=== PATIENT | female | born 1935 | race Caucasian/White ===

== ENCOUNTER 2016-04-08 10:50 | Inpatient (IN) | payer OTHER ==
[2016-04-07 11:59] LABS: MANUAL DIFF NEEDED? NO
[2016-04-07 12:03] LABS: BASO% 0.5 % (0.0-0.8); EOS# 0.01 X1000 (0.0-0.7); EOS% 0.2 % (0.0-10.0); HEMATOCRIT 36.9 % (37.0-47.0); HEMOGLOBIN 12.8 g/dL (12.0-16.0); IMM GRAN# 0.02 X1000 (0.0-0.04); IMM GRAN% 0.5 % (0.0-0.5); LYMPH# 1.04 X1000 (1.2-3.4); LYMPH% 24.6 % (20.5-51.1); MCH 30.6 PG (27-31); MCHC 34.7 g/dL (33-37); MCV 88.3 FL (81-99); MONO# 0.79 X1000 (0.11-0.59); MONO% 18.7 % (1.7-9.3); MPV 9.3 FL (7.4-10.4); NEUT% 55.5 % (42.2-75.2); PLT 228 X1000 (130-400); RBC 4.18 XMIL (4.2-5.4)
[2016-04-07 12:12] LABS: INR 1.11; PROTIME 11.8 Seconds (9.2-11.7); PTT 32.4 Seconds (22.0-36.0)
[2016-04-07 12:56] LABS: ALBUMIN 4.1 g/dL (3.5-5.0); CALCIUM 8.7 mg/dL (8.8-10.2); POTASSIUM 4.6 mmol/L (3.5-5.1); TOTAL BILIRUBIN 0.42 mg/dL (0.20-1.00); TOTAL PROTEIN 6.7 g/dL (6.3-8.3)
--- NOTE | 2016-04-08 15:15 | Diag Imaging Result Document ---
PROCEDURE NAME: US RENAL 2 (RETROPER) COMPLETE - 04/08/2016 RENAL ULTRASOUND: FINDINGS: The right kidney is 8.7 x 4.3 x 4.5 cm. The left is 8.9 x 4.6 x 4.2 cm. Both kidneys are somewhat atrophic and hyperechoic in appearance. There is no evidence of hydronephrosis. The bladder is not distended. There are no previous studies. IMPRESSION: Renal atrophy and probable medical renal disease.
[2016-04-08] MEDS: LASIX PO SCH (15:37)
[2016-04-08] MEDS: NEURONTIN PO SCH ×2 (15:37→20:23)
[2016-04-08] MEDS: ULTRAM PO SCH ×2 (15:40→20:22)
[2016-04-08 17:21] LABS: URINE CULTURE NEEDED? NO; URINE MICRO REVIEW NEEDED? NO; URINE SOURCE CLEAN CATCH
[2016-04-08] MEDS ORDERED: DUONEB (A & A) INH PRN (17:28)
[2016-04-08 17:29] LABS: BILIRUBIN URINE NEGATIVE (NEGATIVE); BLOOD URINE NEGATIVE (NEGATIVE); COLOR STRAW; GLUCOSE URINE NEGATIVE (NEGATIVE); LEUKOCYTES URINE NEGATIVE (NEGATIVE); NITRITE URINE NEGATIVE (NEGATIVE); PROTEIN URINE NEGATIVE (NEGATIVE); SP GRAVITY URINE 1.006; TURBIDITY URINE CLEAR (CLEAR); UR EPITHELIAL CELLS <10 /HPF (<10); URINE BACTERIA NEGATIVE /HPF; URINE RBC <10 /HPF (<10); URINE WBC <10 /HPF (<10); UROBILINOGEN URINE NORMAL (NORMAL)
[2016-04-08] MEDS ORDERED: SODIUM CHLORIDE 0.9% INJ SCH (17:30)
[2016-04-08] MEDS ORDERED: PROTONIX IV SCH (17:30)
[2016-04-08 17:40] LABS: UR CREAT RANDOM 22.6 mg/dL (11-20); UR PROT RANDOM < 4.0 mg/dL
--- NOTE | 2016-04-08 18:00 | HISTORY AND PHYSICAL ---
PRIMARY CARE PHYSICIAN: Josh Soto MD. HEALTH CLAIMS EXAMINER: Yessy Martinez MD. CHIEF COMPLAINT: Chest pain. Shortness of breath. HISTORY OF PRESENT ILLNESS: Mrs. Mayfield is a pleasant 80-year-old female, she has a history of Alzheimer's type dementia, hypertension, atrial fibrillation and hyperlipidemia, who was admitted from outpatient procedure. She is actually scheduled for left heart catheterization today by Dr. Yessy Martinez for progressive shortness of breath and chest pain, but in preop, she was noted to have a creatinine of 2.2. Dr. Martinez felt the patient needed to be admitted and worked up for her renal failure and monitored for chest pain and shortness of breath. She has been having progressive chest pain and shortness of breath over the past few weeks. She has also been reporting a cough, but no fever or chills. She also has fairly severe lower extremity edema. Chest pain and shortness of breath is made worse with exertion and relieved with rest. With the exception of the previously described, she has no other complaints. She is currently resting in bed comfortably. Her outsole flexer reveals atrial fibrillation with a controlled response. Laboratory data does show a sodium of 124, creatinine 2.2, but otherwise fairly unremarkable. She did report that Dr. Martinez started her on Lasix at home. We are going to admit her for renal failure as well as chest pain. Dr. Spence and Dr. Martinez have already been consulted. PAST MEDICAL HISTORY: 1. Hypertension. 2. GERD. 3. Atrial fibrillation on anticoagulant therapy. 4. Dementia. 5. Chronic anxiety. 6. Rheumatoid arthritis. PAST SURGICAL HISTORY: Cholecystectomy, bilateral knee replacement, bilateral carpal tunnel release. SOCIAL HISTORY: Patient is . She lives at home. She does not smoke, drink or use drugs. FAMILY HISTORY: Both parents with "natural causes" in their 80s. REVIEW OF SYSTEMS: Ten point review of systems obtained and found to be negative with the exception of the HPI. HOME MEDICATIONS: Eliquis 5 mg b.i.d., BuSpar 10 mg every 8 hours. Aricept 10 mg daily. Keppra 250 mg p.o. b.i.d., Synthroid 50 mcg daily. Magnesium 250 mg daily. Namenda XR 28 mg p.o. daily. Lopressor 50 mg b.i.d., Prilosec 40 mg p.o. daily. KCl 10 mEq p.o. daily. Pravachol 20 mg daily. Ultram 50 mg b.i.d. Desyrel 50 mg p.o. at bedtime, Lasix 20 mg daily. Neurontin 300 mg b.i.d. ALLERGIES: To Dilantin. PHYSICAL EXAMINATION: VITAL SIGNS: Blood pressure is 117/70, heart rate is 74, respiratory rate is 18, O2 saturation 100% on room air. Temperature is 97.7. GENERAL: This is an overweight, female, lying in hospital bed in no acute distress. NEUROLOGIC: The patient is alert. She is oriented, but at times she does seem forgetful in answering questions. There are no focal deficits. HEENT: Head is atraumatic, normocephalic. Pupils are equal, round, and reactive to light. Oral mucosa is moist. Trachea is midline. NECK: Supple. No appreciable JVD. CHEST: Coarse sounds bilaterally. GI: Soft, nondistended, nontender. Bowel sounds are positive. EXTREMITIES: With 2+ pitting edema bilaterally. Pulses are diminished. DIAGNOSTIC DATA: Chest x-ray is pending. Renal ultrasound does not show anything acute. Chronic changes noted. WBC 4.23, hemoglobin 12.8, hematocrit 36.9, platelet 228. Coag within normal limits. Sodium 124, potassium 4.6, chloride 81, CO2 of 27, anion gap 16, BUN 39, creatinine 2.2. Calcium 8.7. Liver function tests within normal limits. ASSESSMENT AND PLAN: 1. Chest pain and shortness of breath: The patient is being followed by Cardiology. Recent echocardiogram done at the beginning of the month shows fairly preserved ejection fraction of 50% without regional wall motion abnormalities. She does have mildly elevated pulmonary artery pressure. Mild mitral regurgitation and mild tricuspid regurgitation. We will monitor telemetry. She is currently not having any chest pain. Her EKG did not show anything acute. Again, Cardiology is following. 2. Acute kidney injury: Review of renal function in the past shows it seems that she has some degree of renal insufficiency. Renal ultrasound does not show anything acute. We have ordered urine studies and consulted with Dr. Spence. 3. Hyponatremia: Seems to be hypervolemic given her physical exam and history. We are going to check urine studies and treat accordingly. She is on p.o. Lasix per Cardiology. 4. Hypertension: Chronic and stable. Continue her home medications. 5. Hypothyroidism: We will check a thyroid function panel and continue her Synthroid. 6. Dementia: Chronic and stable, continue home medications. 7. Cough: Patient has a cough and states that she has been around family that has been sick recently. We are checking a chest x-ray now. She does not have a white count, fever or tachycardia. We will add p.r.n. nebulizers and monitor this closely. 8. Gastrointestinal prophylaxis will be provided with IV Protonix. 9. Deep vein thrombosis prophylaxis with heparin, given her renal failure. 10. Further recommendations to follow. Dictated by YUKI Brooks for Navdeep Dudley MD
[2016-04-08 18:02] LABS: FREE T4 1.55 ng/dL (0.93-1.70)
[2016-04-08] MEDS: DUONEB (A & A) INH SCH ×3 (19:00→22:59)
[2016-04-08] MEDS: PRAVACHOL PO SCH (20:23)
[2016-04-08] MEDS: LOPRESSOR PO SCH (20:23)
[2016-04-08] MEDS: DESYREL PO SCH (20:23)
[2016-04-08] MEDS: KEPPRA PO SCH (20:23)
[2016-04-08] MEDS: BUSPAR PO PRN (21:50)
[2016-04-09] MEDS: MORPHINE IV PRN ×4 (01:03→20:17)
[2016-04-09] MEDS: DUONEB (A & A) INH SCH ×6 (03:11→22:41)
[2016-04-09 05:24] LABS: HEMATOCRIT 33.6 % (37.0-47.0); HEMOGLOBIN 11.6 g/dL (12.0-16.0); MCH 30.6 PG (27-31); MCHC 34.5 g/dL (33-37); MCV 88.7 FL (81-99); MPV 9.6 FL (7.4-10.4); RBC 3.79 XMIL (4.2-5.4)
[2016-04-09 05:46] LABS: HEMOGLOBIN A1C 5.7 % (4.8-6.0)
[2016-04-09 06:08] LABS: AGAP 12; BUN 32 mg/dL (8-22); CALCIUM 8.8 mg/dL (8.8-10.2); CHLORIDE 82 mmol/L (98-107); COSMO 257; HDL 32 mg/dL (45-65); LDL 63 mg/dL; MAGNESIUM 2.2 mg/dL (1.5-2.7); POTASSIUM 4.6 mmol/L (3.5-5.1); SODIUM 124 mmol/L (136-145); TCO2 30 mmol/L (25-35); TRIGLYCERIDES 133 mg/dL (35-135); VLDL 27 mg/dL
[2016-04-09] MEDS: SYNTHROID PO SCH (06:16)
[2016-04-09] MEDS ORDERED: MAG-OX PO SCH (09:00)
[2016-04-09] MEDS: KEPPRA PO SCH ×2 (09:16→20:18)
[2016-04-09] MEDS: PRILOSEC PO SCH (09:17)
[2016-04-09] MEDS: ARICEPT PO SCH (09:17)
[2016-04-09] MEDS: LOPRESSOR PO SCH ×2 (09:17→20:18)
[2016-04-09] MEDS: LASIX PO SCH (09:17)
[2016-04-09] MEDS: ULTRAM PO SCH ×2 (09:18→20:18)
[2016-04-09] MEDS: KLOR-CON PO SCH (09:18)
[2016-04-09] MEDS: NAMENDA XR PO SCH (09:18)
[2016-04-09] MEDS: NEURONTIN PO SCH ×2 (09:19→20:19)
--- NOTE | 2016-04-09 11:01 | Diag Imaging Result Document ---
PROCEDURE NAME: CHEST-2 VIEWS - 04/08/2016 TWO VIEWS OF THE CHEST: FINDINGS: There is elevation of the left hemidiaphragm. There is minimal atelectasis in the left base, which was not present on 12/05/2015. Otherwise, there has been no significant change. IMPRESSION: Minimal left lower lobe atelectasis.
[2016-04-09] MEDS: ROBAXIN PO PRN ×2 (11:37→19:00)
--- NOTE | 2016-04-09 12:41 | PROGRESS NOTE ---
DATE: 04/09/2016 SUBJECTIVE: Overall patient feels well currently. Her breathing is stable. OBJECTIVE: Vital Signs: Heart rate is in the 60s to 70s. Blood pressure is 90s over 60s. General: On exam, this is a well-developed female who is comfortable. HEENT: Benign. Neck: Supple. Chest: Bilateral breath sounds, which are clear. Cardiovascular: Reveals a regular rate and rhythm. Abdomen: Positive bowel sounds. Nontender, nondistended. Extremities: There is trivial nonpitting edema within the ankle and pretibial distribution. LABORATORY WORK: Today hemoglobin and hematocrit is 11 and 33, BUN and creatinine is 32 and 1.8. This is slowly improving. Urinalysis is negative. I have reviewed renal ultrasound which appears to be consistent with degenerative renal disease. IMPRESSION: Diastolic heart failure. PLAN: Ms. Mayfield is recovering from an episode of significant diastolic heart failure with severe swelling of the lower extremities. She has diuresed appropriately, but with diuresis has developed a worsening of her renal function which is improving by withholding diuretic and slow rehydration. I suspect that patient's diastolic issues are primarily related to long history of hypertension and probably underlying pulmonary disease as well although certainly coronary disease is an issue. Unfortunately, we have a very narrow medical window with Ms. Mayfield where we can appropriately treat her fluid without compromising renal function. My preference would be left and right heart catheterization. We would like to perform left heart catheterization to exclude coronary disease as an underlying etiology. The patient has had atypical chest pain with anginal features. If we were to perform this we need renal function optimal and would have to use minimal contrast. No more than 30 or 40 mL. I would also like to perform right heart catheterization at that time to help with hemodynamic monitoring and medication adjustment. I have fully discussed these issues with the patient and her family. They understand these and are in agreement with this plan.
--- NOTE | 2016-04-09 13:46 | CONSULTATION ---
DATE OF CONSULTATION: 04/09/2016 REASON FOR CONSULTATION: Acute kidney injury. HISTORY OF PRESENT ILLNESS: Ms. aMyfield is a 80-year-old, white female with a history of dementia as well as atrial fibrillation, hypertension, rheumatoid arthritis, etc. She was experiencing chest discomfort and had a plan for left heart catheterization by Dr. Martinez. Her laboratory data disclosed a creatinine of 2.2, so she was admitted to address this problem and to plan for the heart catheter after. Baseline creatinine historically was in the low 1's though early in March, her creatinine was 1.8 to 1.9. She states that she had severe lower extremity edema and had a new diuretic added. The treatment improved her edema, but she has had some cramping and leg discomfort since that time. She states she has had kidney problems "all her life." She does relate a history of nephrolithiasis, but no other problems could be articulated. PAST MEDICAL HISTORY: As above. SOCIAL HISTORY: She is and lives with her . No alcohol or tobacco. FAMILY HISTORY: Noncontributory. REVIEW OF SYSTEMS: Otherwise noncontributory. PHYSICAL EXAMINATION: Vital Signs: Blood pressure 91/61, heart rate 73, respiration 18, afebrile. Intake 240 mL. Output 1 L. Skin: Warm and dry. HEENT: Conjunctivae are pink. Pupils are equal. Oropharynx is dry. Neck: Neck veins are not visible. Trachea is midline. Heart: Regular. Lungs: Have equal breath sounds. No crackles or wheezes. Abdomen: Soft and nontender. Bowel sounds are present. Extremities: Have no edema, clubbing, or cyanosis. Her legs are tender to palpation. Neurologic Exam: Grossly nonfocal. LABORATORY DATA: Sodium 124, potassium 4.6, chloride 82, bicarbonate 30, BUN 32, creatinine 1.8. Urinalysis with no blood or protein. FENa is greater than 1. IMPRESSION: Acute kidney injury. I expect this is related to diuretic use, overlying mild chronic kidney disease as a function of her age and vascular disease. I will stop her diuretics over the weekend and observe her response. Her labs have already improved modestly since admission. Renal ultrasound has been performed and shows small kidneys bilaterally, but no other findings.
[2016-04-09] MEDS: MAG-OX PO SCH (14:48)
--- NOTE | 2016-04-09 18:51 | PROGRESS NOTE ---
DATE: 04/09/2016 SUBJECTIVE: This patient states that she is feeling fine, she is complaining of cramping in the lower extremities. She denies chest pain at this moment. She denies nausea, vomiting, diarrhea, constipation, fever or chills. OBJECTIVE: Vital Signs: Temperature 97.4 degrees, pulse 94, respiratory rate 18, blood pressure 96/64, oxygen saturation 99. HEENT: Head normocephalic. No trauma. PERRLA. Neck: Supple. No JVD. No masses. Cardiovascular: RRR. No murmurs. No gallops. No rubs. Chest: Clear to auscultation. No wheezing. No rales. Abdomen: Soft, nontender, nondistended. No hepatosplenomegaly. Extremities: Trace edema. No clubbing. No cyanosis. Neurological: The patient is alert and oriented x3. No focal neurological deficits. LABORATORY: WBC 4.5, hemoglobin 11.6, hematocrit 33.6, platelets 188,000, sodium 122, potassium 4.6, chloride 182, bicarbonate 30, BUN 32, creatinine 1.8, glucose 108, calcium 8.8. ASSESSMENT AND PLAN: 1. Chest pain and shortness of breath. At this moment this patient is not complaining of any shortness of breath or chest pain. Cardiology department is following this patient. The plan is to do a left and right cardiac cath, assuming this procedure is going to be after kidney function and electrolyte stabilization, hopefully at the beginning of next week. 2. Acute kidney injury. Nephrology is on board and the diuretics were stopped. The kidney function improved a little bit. We will continue monitoring this patient. 3. Hyponatremia. No changes compared with yesterday. We will continue monitoring. 4. Hypertension, chronic and stable. Continue home medication. 5. Hypothyroidism. TSH and T4 within normal limits. We will continue with Synthroid. 6. Dementia, chronic and stable. Continue home medication.
[2016-04-09] MEDS: BUSPAR PO PRN (20:17)
[2016-04-09] MEDS: PRAVACHOL PO SCH (20:18)
[2016-04-09] MEDS: DESYREL PO SCH (20:18)
[2016-04-10] MEDS: ROBAXIN PO PRN (01:22)
[2016-04-10] MEDS: DUONEB (A & A) INH SCH ×6 (03:26→22:49)
[2016-04-10 05:26] LABS: MANUAL DIFF NEEDED? NO
[2016-04-10 05:37] LABS: BASO% 0.4 % (0.0-0.8); EOS# 0.13 X1000 (0.0-0.7); EOS% 2.8 % (0.0-10.0); HEMATOCRIT 32.6 % (37.0-47.0); LYMPH# 2.01 X1000 (1.2-3.4); LYMPH% 42.7 % (20.5-51.1); MCH 30.6 PG (27-31); MCHC 33.7 g/dL (33-37); MCV 90.6 FL (81-99); MONO# 0.74 X1000 (0.11-0.59); MONO% 15.7 % (1.7-9.3); MPV 9.6 FL (7.4-10.4); NEUT% 38.4 % (42.2-75.2); PLT 219 X1000 (130-400)
[2016-04-10] MEDS: SYNTHROID PO SCH (06:03)
[2016-04-10 06:16] LABS: ALBUMIN 3.3 g/dL (3.5-5.0); CALCIUM 8.5 mg/dL (8.8-10.2); POTASSIUM 5.4 mmol/L (3.5-5.1)
[2016-04-10] MEDS: PRILOSEC PO SCH (08:36)
[2016-04-10] MEDS: NEURONTIN PO SCH ×2 (08:36→20:41)
[2016-04-10] MEDS: ULTRAM PO SCH ×2 (08:37→20:40)
[2016-04-10] MEDS: ARICEPT PO SCH (08:37)
[2016-04-10] MEDS: NAMENDA XR PO SCH (08:37)
[2016-04-10] MEDS: KLOR-CON PO SCH (08:37)
[2016-04-10] MEDS: LOPRESSOR PO SCH ×2 (08:37→20:41)
[2016-04-10] MEDS: MAG-OX PO SCH (08:37)
[2016-04-10] MEDS: KEPPRA PO SCH ×2 (08:37→20:41)
[2016-04-10] MEDS ORDERED: SAMSCA PO ONE (12:13)
--- NOTE | 2016-04-10 14:26 | PROGRESS NOTE ---
DATE: 04/10/2016 SUBJECTIVE: Patient has no complaints today. Her breathing appears to be stable. She denies overt chest pain. OBJECTIVE: I's and O's: Patient is positive 1150 mL today. Vital signs: Heart rate is in the 70s, blood pressure is 100/60. General: On exam this is a well-developed female who is comfortable. Chest: Bilateral breath sounds with diffuse rhonchi. No wheezing. No crackles. Cardiovascular: Reveals a regular rate and rhythm. Abdomen: Positive bowel sounds. Nontender, nondistended. Extremities: There is nonpitting pretibial edema. LABORATORY DATA: I reviewed laboratory work today. White count 4, hemoglobin and hematocrit 11 and 32, platelet count is 219,000. Sodium 124, potassium 5.4, chloride 82, BUN 34, creatinine 2.2. IMPRESSION: Congestive heart failure. Patient appears to have diastolic congestive heart failure. She had diuresed aggressively in the outpatient setting and was feeling better. However this has had an effect on overall renal function. Her creatinine is beginning to slowly drift back up. She remains hyponatremic. I am concerned that this may be a hypervolemic hyponatremia. Although diuretic therapy has been held, we will discussed the possible use of Samsca with Nephrology for free water diuresis. From a cardiac standpoint, ideally we would like to consider left and right heart catheterization. With creatinine elevating however I think that left heart catheterization would not be prudent at this time. Will discuss with Nephrology. Further recommendations to follow.
[2016-04-10] MEDS ORDERED: VELTASSA PO ONE (16:49)
[2016-04-10] MEDS: MORPHINE IV PRN (18:28)
--- NOTE | 2016-04-10 18:45 | PROGRESS NOTE ---
DATE: 04/10/2016 SUBJECTIVE: This patient states that she is feeling fine. She is not complaining of any specific problem at this moment. She denies nausea, vomiting, diarrhea, constipation, fever or chills. OBJECTIVE: Vital Signs: Temperature 97.8 degrees, pulse 106, respiratory rate 19, blood pressure 110/67, O2 saturation 100% on room air. HEENT: Head normocephalic. No trauma. PERRLA. Neck: Supple. No JVD. No masses. Cardiovascular: Irregular rate and rhythm. No murmurs. No gallops or rubs. Chest: Clear to auscultation. No wheezing. No rales. Abdomen: Soft, nontender, nondistended. No hepatosplenomegaly. Extremities: No edema. No clubbing. No cyanosis. Neurological: The patient is alert and oriented x3. No focal neurological deficits. LABORATORY: WBC 4.7, hemoglobin 11, hematocrit 32.6. Sodium 124, potassium 5.4 , chloride 82, BUN 32, creatinine 2.2, glucose 107, calcium 8.5, albumin 3.3. ASSESSMENT AND PLAN: 1. Chest pain and shortness of breath. At this moment this patient is not complaining of any shortness of breath or chest pain. Cardiology department is following this patient. The plan is to do a left and right cardiac catheterization. I am assuming that this procedure will be done after the kidney function and electrolyte stabilization hopefully at the beginning of next week. 2. Hyponatremia. This patient received a dose of Tolvaptan today. Will monitor. 3. Acute kidney injury. Nephrology is on board. The creatinine increased a little bit from 1.8 to 2.2. We will monitor. 4. Hyperkalemia. This patient is on potassium daily, I stopped this medication. Also I added 1 time dose of Veltassa low dose. Will monitor. 5. Hypothyroidism. TSH and T4 within normal limits. We will continue with Synthroid. 6. Dementia. This is chronic and stable. Continue home medications. CRITICAL CARE TIME: 30 minutes. BRIGIDO
[2016-04-10] MEDS: PRAVACHOL PO SCH (20:40)
[2016-04-10] MEDS: BUSPAR PO PRN (20:40)
[2016-04-10] MEDS: DESYREL PO SCH (20:41)
[2016-04-11] MEDS: DUONEB (A & A) INH SCH ×3 (03:41→10:39)
[2016-04-11 05:03] LABS: MANUAL DIFF NEEDED? NO
[2016-04-11 05:19] LABS: BASO% 0.3 % (0.0-0.8); EOS# 0.13 X1000 (0.0-0.7); EOS% 2.2 % (0.0-10.0); HEMATOCRIT 34.2 % (37.0-47.0); HEMOGLOBIN 11.8 g/dL (12.0-16.0); LYMPH# 1.75 X1000 (1.2-3.4); LYMPH% 29.8 % (20.5-51.1); MCH 30.9 PG (27-31); MCHC 34.5 g/dL (33-37); MCV 89.5 FL (81-99); MONO% 10.2 % (1.7-9.3); MPV 9.4 FL (7.4-10.4); NEUT% 57.5 % (42.2-75.2); PLT 238 X1000 (130-400); RBC 3.82 XMIL (4.2-5.4)
[2016-04-11] MEDS: ROBAXIN PO PRN (05:36)
[2016-04-11] MEDS: SYNTHROID PO SCH (06:02)
[2016-04-11 06:50] LABS: ALBUMIN 3.6 g/dL (3.5-5.0); CALCIUM 8.7 mg/dL (8.8-10.2)
--- NOTE | 2016-04-11 07:44 | EKG Report ---
Test Performed on : 04/09/2016 06:04:31 AM Test Reason : dyspnea Blood Pressure : / mmHG Vent. Rate : 074 BPM Atrial Rate : 049 BPM P-R Int : 000 ms QRS Dur : 096 ms QT Int : 412 ms P-R-T Axes : 000 -04 -05 degrees QTc Int : 457 ms Atrial fibrillation. Nonspecific ST abnormality Abnormal ECG When compared with ECG of 05-DEC-2015 17:00, T wave inversion no longer evident in Anterior leads Confirmed by Genaro Tripp MD ([id number]) on 04/12/2016 8:35:13 AM
--- NOTE | 2016-04-11 09:23 | EKG Report ---
Test Performed on : 04/09/2016 1:20:11 PM Test Reason : CIC10. Not ordered in [place] Blood Pressure : / mmHG Vent. Rate : 072 BPM Atrial Rate : 069 BPM P-R Int : 000 ms QRS Dur : 102 ms QT Int : 410 ms P-R-T Axes : 000 -02 027 degrees QTc Int : 448 ms Atrial fibrillation. Nonspecific T wave abnormality Abnormal ECG When compared with ECG of 09-APR-2016 06:04, (Unconfirmed) No significant change was found Confirmed by Genaro Tripp MD ([id number]) on 04/12/2016 8:33:35 AM
[2016-04-11] MEDS ORDERED: SAMSCA PO ONE (10:13)
--- NOTE | 2016-04-11 10:42 | PROGRESS NOTE ---
DATE: 04/11/2016 SUBJECTIVE: The patient feels better. She has no complaints today. She is now edema free. OBJECTIVE: Vital Signs: Heart rate is in the 80s, blood pressure is 100-130s over 70s. General: On exam, this is a well-developed female, who is awake and alert. HEENT: Benign. Neck: Supple. Chest: Clear. Cardiovascular: Reveals a regular rate and rhythm. Abdomen: Positive bowel sounds. Nontender, nondistended. Extremities: There is now no edema, which is unchanged. LABORATORY WORK: Today white count 5, hemoglobin and hematocrit 11 and 34, platelet count is 238,000. Sodium 125, potassium 5, chloride 85, BUN 31, creatinine 1.9. IMPRESSION/PROBLEM: Congestive heart failure. This is diastolic congestive heart failure in the setting of acute on chronic renal insufficiency. Patient has responded well to Samsca. I would dose 1 more time. She appears to be diuresing and is now edema free. From a cardiac standpoint, I feel it is okay for patient to be discharged home today, after her dosage of Samsca. As far as home medications are concerned, I would reinitiate anticoagulant therapy in the form of Eliquis. I would cinder all on Lasix 40 mg a day, but withhold potassium. We will continue other medications. We will have patient followed up in the cardiology office in 2 weeks. I will check a repeat blood work within the next 1-2 weeks in the outpatient setting.
[2016-04-11] MEDS: MAG-OX PO SCH (10:50)
[2016-04-11] MEDS: ULTRAM PO SCH (10:50)
[2016-04-11] MEDS: NAMENDA XR PO SCH (10:50)
[2016-04-11] MEDS: NEURONTIN PO SCH (10:51)
[2016-04-11] MEDS: ARICEPT PO SCH (10:52)
[2016-04-11] MEDS: PRILOSEC PO SCH (10:52)
[2016-04-11] MEDS: LOPRESSOR PO SCH (10:52)
[2016-04-11] MEDS: KEPPRA PO SCH (10:52)
[2016-04-11 11:39] VITALS: BP 102/66
--- NOTE | 2016-04-11 14:36 | Extremity Venous Study ---
PROCEDURE NAME: Venous U/S Bilateral Legs - 04/09/2016 REFERRING PHYSICIAN: Dr. Gonzáles. INTERPRETING PHYSICIAN: Dr. Hickman. TECHNOLOGIST: Davian. INDICATION: The patient has pain in the lower extremities. FINDINGS: Bilateral lower extremity venous images accomplished. The common femoral, superficial femoral, deep femoral, popliteal, posterior tibial, peroneal, and greater saphenous veins are imaged bilaterally. The Doppler is used to evaluate the veins for spontaneity, phasicity, respiratory excursion, and distal augmentation. All veins are compressible. No intraluminal clot is seen. INTERPRETATION: No evidence of deep or superficial venous thrombosis in either lower extremity in the veins identified.
--- NOTE | 2016-04-11 17:13 | DISCHARGE SUMMARY ---
ADMISSION DATE: 04/08/2016 DISCHARGE DATE: 04/11/2016 DISCHARGE DIAGNOSES: 1. Chest pain and shortness of breath. 2. Hyponatremia. 3. Acute kidney injury. 4. Hyperkalemia/resolved. 5. Hypothyroidism. 6. Dementia. CONSULTATIONS: Cardiology Department, Dr. Yessy Martinez, and Nephrology Department, Dr. Chad Spence. HOSPITAL COURSE: This is a 80-year-old female with a past medical history of Alzheimer's type dementia, hypertension, atrial fibrillation, and hyperlipidemia, who was admitted from outpatient procedure. She is actually scheduled for a left heart catheterization by Dr. Martinez for progressive shortness of breath and chest pain but in preop she was noted to have a creatinine of 2.[address] Martinez felt the patient needed to be admitted and worked up for her renal failure and monitor her chest pain and shortness of breath. This chest pain and shortness of breath has been progressive over the past few weeks. She also has been reporting cough but no fever or chills. Also she has lower extremity edema. The chest pain and shortness of breath is made worse with exertion and relieved by rest. She was admitted to the [facility] and nephrology department was consulted. They were monitoring this patient and adjusting medications. Also this patient presented with hyponatremia and she has had some episodes of hyperkalemia. That was also treated. This patient was improving on a daily basis, this is why we decided to discharge this patient today, 04/11/2016, with followup by her primary care doctor and follow up with Dr. Martinez in 2 weeks. Upon discharge the patient was in stable medical condition, tolerating p.o. without pain or shortness of breath. PHYSICAL EXAMINATION: HEENT: Head normocephalic. No trauma. PERRLA. Neck: Supple. No JVD. No masses. Cardiovascular: Regular rate and rhythm. No murmurs. No gallops. No rubs. Chest: Clear to auscultation. No wheezing. No rales. Abdomen: Soft, nontender, nondistended. No hepatosplenomegaly. Extremities: No edema. No clubbing. No cyanosis. Neurological: The patient is alert and oriented x3. No focal neurological deficits. Vital Signs: Temperature 98.4 degrees, pulse 88, respiratory rate 16, blood pressure 102/66, oxygen saturation 97 on 3 L of nasal cannula. LABORATORY: WBC 5.8, hemoglobin 11.8, hematocrit 34.2, platelets 238,000. Sodium 125, potassium 5, chloride 85, bicarbonate 27, BUN 31, creatinine 1.9, glucose 149, calcium 8.7, phosphorus 3.1. FOLLOWUP: Follow up with her primary care physician in 1 week and follow up with Dr. Martinez in 2 weeks. Prior to going to the appointment with Dr. Martinez she needs to get lab work. DISCHARGE MEDICATIONS: Eliquis 5 mg p.o. twice a day, furosemide 40 mg p.o. daily, Keppra 250 mg twice a day, BuSpar 1 tablet p.o. every 8 hours as needed, donepezil 10 mg p.o. daily, gabapentin 300 mg p.o. twice a day, levothyroxine 50 mcg p.o. daily, magnesium 1 tablet p.o. daily, Namenda 28 mg p.o. daily, metoprolol 50 mg p.o. twice a day, omeprazole 40 mg p.o. daily, pravastatin 20 mg p.o. daily.
[2016-04-11] MEDS ORDERED: ELIQUIS PO SCH (21:00)
--- NOTE | 2016-04-12 13:38 | HISTORY AND PHYSICAL ---
ADDENDUM: The patient is on Eliquis which we will use for DVT prophylaxis not heparin. Also she has atrial fibrillation which is currently rate controlled and she is on Eliquis and telemetry. Dictated by YUKI Brooks for Navdeep Dudley MD
== END 2016-04-11 15:25 | disposition home health service (06) | DRG 683 ==
LOC: OPS 10:50 → 3S 13:41 → OBSVTOIN 13:41 → 3S 18:33
PROVIDERS: ATTEND Internal Medicine
DX: N17.9 Acute kidney failure, unspecified (principal); I13.0 Hypertensive heart and chronic kidney disease with heart failure and stage 1 through stage 4 chronic kidney disease, or unspecified chronic kidney disease; E87.5 Hyperkalemia; G30.9 Alzheimer's disease, unspecified; I50.30 Unspecified diastolic (congestive) heart failure; F02.80 Dementia in other diseases classified elsewhere, unspecified severity, without behavioral disturbance, psychotic disturbance, mood disturbance, and anxiety; E87.1 Hypo-osmolality and hyponatremia; I48.91 Unspecified atrial fibrillation; M06.9 Rheumatoid arthritis, unspecified; N18.9 Chronic kidney disease, unspecified; R07.89 Other chest pain; E03.9 Hypothyroidism, unspecified; E78.5 Hyperlipidemia, unspecified; K21.9 Gastro-esophageal reflux disease without esophagitis; E66.3 Overweight; F41.9 Anxiety disorder, unspecified; Z79.899 Other long term (current) drug therapy; Z79.02 Long term (current) use of antithrombotics/antiplatelets; Z68.31 Body mass index [BMI] 31.0-31.9, adult; Z96.653 Presence of artificial knee joint, bilateral; T50.2X5A Adverse effect of carbonic-anhydrase inhibitors, benzothiadiazides and other diuretics, initial encounter
CPT/HCPCS: 71020; 76770; 80048; 80053; 80061; 80069; 81001; 82570; 83036; 83735; 83935; 84156; 84300; 84439; 84443; 85025; 85027; 85610; 85730; 93005; 93010; 93970; 94640; 94761; J2270